=== PATIENT | male | born 1955 | race American Indian/Alaskan Native ===

== ENCOUNTER 2017-08-24 14:02 | Outpatient (CLI) | payer OTHER ==
[2017-08-24 14:26] LABS: Basophils % (Auto) 1.2 % (0.0-1.8); Eosinophils % (Auto) 5.2 % (0.0-4.3); Hematocrit 30.8 % (35.5-45.6); Hemoglobin 10.1 gm/dl (11.8-15.2); Mean Corpuscular HGB Conc 33 % (32-34); Mean Corpuscular Hemoglobin 27 pg (28-32); Mean Corpuscular Volume 82 fl (84-94); Platelet Count 232 K/mm3 (140-440); Red Blood Count 3.76 M/mm3 (3.65-5.03); Red Cell Distribution Width 15.9 % (13.2-15.2); White Blood Count 6.9 K/mm3 (4.5-11.0)
[2017-08-24 14:37] LABS: C-Reactive Protein 0.1 mg/dL (0.00-1.30); Potassium 4.6 mmol/L (3.6-5.0)
[2017-08-24 15:06] LABS: Erythrocyte Sedimentation Rate 53 mm/Hr (0-20)
== END 2017-08-24 14:03 | disposition home or self-care (01) ==
LOC: LAB 14:02
PROVIDERS: ATTEND Internal Medicine
DX: Z45.2 Encounter for adjustment and management of vascular access device (principal); E11.9 Type 2 diabetes mellitus without complications; M86.01 Acute hematogenous osteomyelitis, shoulder; M86.9 Osteomyelitis, unspecified
CPT/HCPCS: 36415; 80048; 85025; 85652; 86140

== ENCOUNTER 2019-04-24 05:50 | Day surgery (SDC) | payer BC ==
[2019-04-24] MEDS ORDERED: NACL 0.9% 1000 ML 1,000 ML IV ONE (06:26)
[2019-04-24] MEDS ORDERED: NACL 0.9% 1000 ML 1,000 ML IV SCH (07:00)
[2019-04-24 07:07] LABS: Calcium 9.1 mg/dL (8.4-10.2)
[2019-04-24 07:13] LABS: Basophils # (Auto) 0.1 K/mm3 (0.0-0.1); Eosinophils # (Auto) 0.5 K/mm3 (0.0-0.4); Eosinophils % (Auto) 6.4 % (0.0-4.3); Hematocrit 32.4 % (35.5-45.6); Hemoglobin 10.7 gm/dl (11.8-15.2); Lymphocytes # (Auto) 1.4 K/mm3 (1.2-5.4); Lymphocytes % (Auto) 18.7 % (13.4-35.0); Mean Corpuscular HGB Conc 33 % (32-34); Mean Corpuscular Volume 84 fl (84-94); Monocytes # (Auto) 0.7 K/mm3 (0.0-0.8); Platelet Count 213 K/mm3 (140-440); Red Blood Count 3.86 M/mm3 (3.65-5.03)
[2019-04-24 07:21] LABS: INR 1.05 (0.87-1.13)
[2019-04-24] MEDS ORDERED: HEPARIN/NS 5000 UNIT/500ML(CATH LAB) 1,000 ML IR ONE (08:27)
[2019-04-24] MEDS ORDERED: HEPARIN 10,000 UNITS/10 ML ONE (08:27)
[2019-04-24] MEDS ORDERED: ANCEF/STERILE WATER 2 GM/20 ML 2 GM/20 ML SYRINGE IV ONE (08:27)
[2019-04-24] MEDS ORDERED: NACL 0.9% 1000 ML 1,000 ML ONE (09:08)
[2019-04-24] MEDS: VERSED ONE ×5 (09:13→09:59)
[2019-04-24] MEDS: SUBLIMAZE ONE ×5 (09:13→09:59)
[2019-04-24] MEDS: XYLOCAINE 2% INFILTRATI ONE ×3 (09:13→10:31)
[2019-04-24] MEDS ORDERED: APRESOLINE ONE (09:23)
[2019-04-24] MEDS ORDERED: HEPARIN/NS 5000 UNIT/500ML(CATH LAB) 500 ML IR ONE (09:44)
[2019-04-24] MEDS ORDERED: VERSED ONE (09:58)
[2019-04-24] MEDS ORDERED: BENADRYL ONE (09:58)
[2019-04-24] MEDS ORDERED: NITROGLYCERIN SYRINGE 6 ML ONE (09:58)
[2019-04-24] MEDS ORDERED: SUBLIMAZE ONE (09:59)
[2019-04-24] MEDS ORDERED: DILAUDID ONE (11:22)
[2019-04-24] MEDS ORDERED: DILAUDID IV NR (11:25)
--- NOTE | 2019-04-24 11:31 | Short Stay Summary ---
Short Stay Documentation Date of service: 04/24/19 Narrative H&P: 63 year old male with CRI and DM with critical limb ischemia of the left lower extremity who presents for revascularization. - History Principal diagnosis: PVD with ulceration Past Medical History: diabetes, PVD, other (cri) Social history: no significant social history - Allergies and Medications Current Medications: Allergies codeine Allergy (Severe, Verified 04/24/19 07:01) Shortness of Breath daptomycin Allergy (Severe, Verified 04/24/19 07:01) Anaphylaxis vancomycin Allergy (Severe, Verified 04/24/19 07:01) Anaphylaxis Home Medications Medication Instructions Recorded Confirmed Last Taken Type AtorvaSTATin [Lipitor] 40 mg PO DAILY 04/24/19 04/24/19 04/24/19 05:00 History Furosemide [Lasix TAB] 40 mg PO BID 04/24/19 04/24/19 04/24/19 History 40mg Insulin Detemir [Levemir Flextouch] 30 units SQ HS 04/24/19 04/24/19 04/23/19 History 15units Insulin Regular, Human [Novolin R] 12 units SQ AC 04/24/19 04/24/19 04/22/19 History 12 units Labetalol [Labetalol 200mg TAB] 200 mg PO BID 04/24/19 04/24/19 04/24/19 05:30 History 200mg Rivaroxaban [Xarelto] 20 mg PO DAILY 04/24/19 04/24/19 04/21/19 History 20mg cloNIDine [Catapres] 0.1 mg PO DAILY 04/24/19 04/24/19 04/24/19 05:30 History 0.1mg Active Medications Hydromorphone HCl (Dilaudid) 0.5 mg IV Q4H ONE Stop: 04/24/19 11:26 Sodium Chloride (Nacl 0.9% 1000 Ml) 1,000 mls @ 414 mls/hr IV DIRECT NADIRA Last Admin: 04/24/19 06:45 Dose: 414 mls/hr Documented by: - Physical exam General appearance: no acute distress Lungs: Normal air movement Gastrointestinal: normal Extremities: normal temperature, normal color, abnormal (large ulceration of the left heel) - Brief post op/procedure progress note Date of procedure: 04/24/19 Pre-op diagnosis: PVD with ulceration Post-op diagnosis: same Procedure: Revascularization of the left lower extremity Anesthesia: local (w/ conscious sedation) Surgeon: DANILO LANIER Estimated blood loss: minimal Condition: stable - Hospital course Hospital course: Ready for discharge in 4 hrs. - Disposition Condition at discharge: Stable Disposition: [id number] TO HOME OR SELFCARE - Discharge Diagnoses (1) Diabetic neuropathy Status: Acute (2) Chronic renal insufficiency Status: Acute (3) Atherosclerotic PVD with ulceration Status: Acute (4) Critical ischemia of lower extremity Status: Acute Short Stay Discharge Plan Activity: advance as tolerated Weight Bearing Status: Weight Bear as Tolerated Diet: renal Wound: keep clean and dry, other (remove pressure dressing on 04/25/19 in AM , start taking plavix daily) Follow up with: HERON JACOB MD [Primary Care Provider] - 7 Days
[2019-04-24] MEDS ORDERED: PLAVIX PO ONE (11:36)
--- NOTE | 2019-04-24 11:36 | Operative Report ---
Operative Report Operative Report: EXAM: 1. Ultrasound-guided access of the right common femoral artery. 2. CO2 angiography of the right lower extremity. 3. Selection of the abdominal aorta was CO2 angiography. 4. Selection of the left external iliac artery, superficial femoral artery, and popliteal artery with CO2 angiography. 5. Selection of the left posterior tibial artery with angiography. 6. Fluoroscopic-guided placement of a 4 mm spider embolic protection device the left posterior tibial artery. 7. Atherectomy of the left distal posterior tibial artery with a Hawkone S device 8. Angioplasty of the left distal posterior tibial artery with a 3.5 mm x 40 mm angioplasty balloon and a 4 mm x 40 mm angioplasty balloon 9. Retrieval of the embolic protection device 10. Closure of the right common femoral artery with a 6 [place]ian Pro-glide DATE: 04/24/19 STEREOTYPER HELPER: DANILO LANIER MD INDICATION: Critical limb ischemia of the left lower extremity. MEDICATIONS: Please see nursing report for full details. DEVICES: 4 mm spider embolic protection device Hawkone S device 3.5 mm x 40 mm angioplasty balloon 4 mm x 40 mm angioplasty balloon CONTRAST: 7 mL nonionic contrast ; CO2 angiography PROCEDURE: The risks, benefits, and alternatives were discussed with the patient and his ; written informed consent was obtained. The patient was hydrated before the procedure. The patient's groins were prepped and draped in a sterile fashion after he was placed on the angiography table. Ultrasound was used to identify the right common femoral artery which was patent. Under direct ultrasound guidance, the right common femoral artery was identified and accessed with a 21-gauge micro-puncture needle. 0.018 inch wire was passed into the aorta. Needle was exchanged for transitional dilator. Wire was exchanged for 0.035 inch wire. Transitional dilator was exchanged for a 5 Algerian sheath. CO2 angiography was performed demonstrating patency of the right external iliac artery, common femoral artery, superficial femoral artery, and profunda femoral artery. CO2 angiography was performed of the entire right superficial femoral artery which was patent. The puncture was appropriate, it was above the bifurcation and below the inferior epigastric artery. Catheter was used to select the abdominal aorta and CO2 angiography was performed. Catheter was used to select the left external iliac artery, superficial femoral artery, and popliteal artery and CO2 angiography was performed. Catheter was exchanged for an angled catheter and CO2 angiography and conventional angiography was repeated in the [id number] popliteal artery. CO2 angiography demonstrated patency of the abdominal aorta, bilateral common iliac arteries, bilateral external iliac arteries, bilateral common femoral arteries, left superficial femoral artery, and left [id number] admitted popliteal artery. The below the knee popliteal artery has 30% narrowing. The tibioperoneal trunk and a 30% narrowing. The anterior tibial artery approximately 5 cm afterwards takeoff is occluded. The peroneal artery approximately 10 cm after takeoff is occluded. The proximal 10 cm half if 2% atherosclerotic disease. The peroneal artery reconstitutes in the distal peroneal artery where it provides flow to the dorsalis pedis through a hyper trophied communicating artery. The posterior tibial artery is the dominant flow to the foot but the distal portion of the posterior tibial artery has a focal 90% narrowing. Patient was heparinized. Sheath was exchanged for 6 Algerian 90 cm pedicle destination positioned in the left popliteal artery. The left posterior tibial artery was selected and a 4 mm spider embolic protection device was deployed below the distal posterior tibial artery. Atherectomy was performed of the distal posterior tibial artery using Hawkone S device with multiple passes obtained. After completing atherectomy, 3.5 mm x 40 mm angioplasty balloon was used to perform angioplasty of the distal posterior tibial artery at low atmosphere for 3 minutes. This was repeated with a 4 mm x 40 mm angioplasty balloon. Digital subtraction angiography was performed demonstrating that the basket was not full of debris and the basket was then retrieved. The posterior tibial artery was re-selected and nitroglycerin was administered. Digital subtraction angiography was performed demonstrating less than 10% residual narrowing with prompt flow into the foot without any embolization. At this point, all wires, catheters, and sheaths were retracted to the right external iliac artery. 6 [place] Pro-glide was exchanged for the sheath and used to close the arteriotomy achieving near immediate hemostasis. Sterile dressing and pressure dressing applied. Patient tolerated the procedure well. No immediate postprocedural complications. FINDINGS: Please see procedure note above IMPRESSION: Successful atherectomy and angioplasty of the left posterior tibial artery
[2019-04-24 14:27] VITALS: BP 171/95
[2019-04-24] MEDS ORDERED: PLAVIX ONE (15:28)
== END 2019-04-24 15:30 | disposition home or self-care (01) ==
LOC: CATHLABREC 05:50
PROVIDERS: ATTEND Radiology Diagnostic Radiology
DX: I70.244 Atherosclerosis of native arteries of left leg with ulceration of heel and midfoot (principal); E11.40 Type 2 diabetes mellitus with diabetic neuropathy, unspecified; I12.9 Hypertensive chronic kidney disease with stage 1 through stage 4 chronic kidney disease, or unspecified chronic kidney disease; E11.22 Type 2 diabetes mellitus with diabetic chronic kidney disease; N18.9 Chronic kidney disease, unspecified; E11.51 Type 2 diabetes mellitus with diabetic peripheral angiopathy without gangrene; Z85.46 Personal history of malignant neoplasm of prostate; Z80.8 Family history of malignant neoplasm of other organs or systems; Z83.3 Family history of diabetes mellitus; Z79.01 Long term (current) use of anticoagulants; Z88.5 Allergy status to narcotic agent; Z79.899 Other long term (current) drug therapy; Z79.84 Long term (current) use of oral hypoglycemic drugs; Z79.4 Long term (current) use of insulin; Z98.890 Other specified postprocedural states; Z82.49 Family history of ischemic heart disease and other diseases of the circulatory system
CPT/HCPCS: 36415; 37229; 75625; 75710; 76937; 80048; 85025; 85610; 85730; 96360; 96361; 99156; 99157; C1714; C1725; C1760; C1769; C1884; C1887; J0360; J0690; J1170; J1200; J1644; J2250; J3010; J7030; Q9967